=== PATIENT | female | born 1975 | race Caucasian/White ===

== ENCOUNTER 2022-10-29 07:59 | Outpatient (CLI) | payer BC, MEDICAID, SELFPAY ==
--- NOTE | 2022-10-29 08:13 | US_ITS ---
WS: [id number] Complete ABDOMINAL ULTRASOUND HISTORY: LEFT LOWER QUADRANT ABDOMINAL SWELLING, MASS AND LUMP COMPARISON: None available. Liver: 15.5 cm in length. Normal size liver with hepatic steatosis. No intrahepatic duct dilatation. Portal Vein: Normal hepatopetal flow with monophasic waveform. Gallbladder: Well distended. On several images there is bowel gas. Closely associated with the gallbl adder. There is also some very mild nodularity and thickening of the gallbladder which does not persi st on all images. There is no gallbladder wall thickening. CBD: 0.7 cm Pancreas: Obscured by bowel gas. Right kidney: 10.0 cm x 5.3 x 4.2 cm. Cortex:1.0 cm. Normal size and echogenicity. No hydronephrosis or mass. Left kidney: 10.4 cm x 5.3 cm x 5.1 cm. Cortex: 1.2 cm. Normal size and echogenicity. No hydronephrosis or mass. Spleen: 12.7 cm in length. Normal. Aorta and IVC: Limited but unremarkable. US/US abdomen complete* [id number] Impression: 1. Hepatic steatosis. No intrahepatic bile duct dilatation. 2. Difficult visualization of the gallbladder due to several factors. Very sli ght nodularity of the gallbladder wall and possible stones versus bowel gas fro m the adjacent colon. Recommend short-term ultrasound follow-up gallbladder. Re commend 2-3 week follow-up. Reattempt imaging of the gallbladder to evaluate fo r stones. Also the common bile duct can be reevaluated as it is top normal size on today's exam.
--- NOTE | 2022-10-29 08:14 | US_ITS ---
WS: [id number] US pelvic complete* [id number] HISTORY: LEFT LOWER QUADRANT ABDOMINAL SWELLING, MASS AND LUMP COMPARISON: None available. Patient is status post complete hysterectomy. No midline mass identified. There is no free fluid in t he pelvis. The uterus is not identified. Neither ovary is identified. Patient has declined endovaginal imaging. US/US pelvic complete* [id number] IMPRESSION: Status post hysterectomy. No abnormality identified within the pelvis. Neither ovary is identified.
== END 2022-10-29 08:00 | disposition home or self-care (01) ==
PROVIDERS: PCP Nurse Practitioner Family; Visit Provider Nurse Practitioner Family
DX: R19.04 Left lower quadrant abdominal swelling, mass and lump (principal); Z90.710 Acquired absence of both cervix and uterus; K76.0 Fatty (change of) liver, not elsewhere classified; K82.8 Other specified diseases of gallbladder
CPT/HCPCS: 76700; 76856

== ENCOUNTER 2022-11-20 09:50 | Outpatient (CLI) | payer BC, MEDICAID, SELFPAY ==
--- NOTE | 2022-11-20 09:57 | NM_ITS ---
WS: [id number] NUCLEAR MEDICINE HIDA SCAN WITH GALLBLADDER EJECTION FRACTION HISTORY: CHOLECYSTITIS COMPARISON: Gallbladder ultrasound 10/29/2022 TECHNIQUE: The patient was intravenously injected with 7.0 mCi of TC99m Mebrofenin. Immediate imaging over the right upper quadrant was followed by 5 minute image and additional images for a total of 60 minutes. Normal uptake of radiotracer throughout the liver. Activity identified in the gallbladder at 15 minutes and well distended by 60 minutes. Activity in the proximal small bowel was seen by 50 minutes. Good washout of the radiotracer from the liver by 60 minutes. The patient then drank 8 ounces of Ensure Plus. Ejection fraction at 60 minutes was 60%. Normal GB ej ection fraction is 35-75%. Post fatty meal symptoms: None. NM/NM hepatobiliary w phar* [id number] IMPRESSION: 1. Normal HIDA scan. 2. Normal gallbladder ejection fraction.
== END 2022-11-20 09:51 | disposition home or self-care (01) ==
LOC: RAD 09:51
PROVIDERS: PCP Nurse Practitioner Family; Visit Provider Nurse Practitioner Family
DX: K81.9 Cholecystitis, unspecified (principal)
CPT/HCPCS: 78227; A9537

== ENCOUNTER → 2023-01-22 07:54 | Outpatient (BNVA) | payer BC, MEDICAID, SELFPAY | PROVIDERS: PCP Nurse Practitioner Family; Visit Provider Podiatrist Foot & Ankle Surgery | DX: M79.671 Pain in right foot; M25.371 Other instability, right ankle; M20.11 Hallux valgus (acquired), right foot | CPT/HCPCS: 73610 ==

== ENCOUNTER 2023-02-19 08:55 | Outpatient (CLI) | payer BC, MEDICAID, SELFPAY ==
--- NOTE | 2023-02-19 09:30 | MR_ITS ---
WS: [id number] EXAMINATION: MR ankle RT wo con* [id number] ORDER DATE: 02/19/2023 9:14 AM COMPARISON: None. HISTORY: chronic nae instability, possible tear of ligament CONTRAST: None. TECHNIQUE: Axial proton density fat sat, axial T1, sagittal proton density, sagittal STIR, coronal T2 fat sat, and coronal T1 sequences performed. After contrast, axial T1 fat sat, coronal T1 fat sat, and sagittal T1 fat sat were performed. FINDINGS: Achilles enthesophyte. Plantar calcaneal spurring. Normal medial and lateral malleolus. Normal talar dome. Mild degenerative arthritis of the ankle mortise. Deltoid ligament appears intact. ATF appears intact. Small ankle effusion. Distal Achilles appears intact. Trace fluid in the retrocalcaneal bursa . Normal bone marrow signal in the calcaneus. Normal plantar aponeurosis. Normal talocalcaneal and talonavicular articulation. Small amount of tenosynovitis along the peroneal tendons. Peroneal longus and brevis appear intact. Accessory navicular. Partially visualized hallux valgus with bunion deformity. Normal cuboid. Base of the fifth metatarsal appears normal. Normal exte nsor and flexor compartment tendons. Calcaneal cuboid ligament appears intact. IMPRESSION: 1. Small amount of fluid in the retrocalcaneal bursa. Achilles tendon appears intact. 2. Normal medial and lateral malleolus. Normal talar dome. 3. Deltoid ligament appears intact. ATF appears intact. Calcaneal cuboid ligament appears intact. 4. Normal plantar aponeurosis. 5. Small ankle effusion. 6. Mild degenerative arthritis at the ankle mortise. 7. Mild tenosynovitis along peroneal tendons. 8. Hallux valgus with bunion deformity 9. No other acute findings.
== END 2023-02-19 08:56 | disposition home or self-care (01) ==
LOC: RAD 08:55
PROVIDERS: PCP Nurse Practitioner Family; Visit Provider Podiatrist Foot & Ankle Surgery
DX: S93.401A Sprain of unspecified ligament of right ankle, initial encounter (principal); X58.XXXA Exposure to other specified factors, initial encounter; M25.371 Other instability, right ankle; M19.071 Primary osteoarthritis, right ankle and foot; M65.871 Other synovitis and tenosynovitis, right ankle and foot; M20.11 Hallux valgus (acquired), right foot
CPT/HCPCS: 73721

== ENCOUNTER → 2023-04-09 08:57 | Outpatient (BNVA) | payer BC, MEDICAID, SELFPAY | PROVIDERS: PCP Nurse Practitioner Family; Visit Provider Podiatrist Foot & Ankle Surgery | DX: M25.571 Pain in right ankle and joints of right foot; M20.10 Hallux valgus (acquired), unspecified foot; M20.5X1 Other deformities of toe(s) (acquired), right foot | CPT/HCPCS: 73630 ==

== ENCOUNTER 2023-05-01 05:21 | Day surgery (SDC) | payer BC, MEDICAID, SELFPAY ==
[2023-05-01] VITALS (7 sets, daily range): BP systolic 107–128; BP diastolic 37–77; PULSE 52–65; RESP 16–18; TEMP 36.1–36.8; O2SAT 96–99
--- NOTE | 2023-05-01 | XR_ITS ---
WS: [id number] C-ARM RADIOGRAPHS RIGHT FOOT; 2 IMAGES HISTORY: BLAYNEKerry GORDON COMPARISON: 04/09/2023 Intraoperative imaging during bunionectomy and hardware fusion across the first metatarsophalangeal j oint. IMPRESSION: Intraoperative imaging.
[2023-05-01] MEDS: gabapentin 300 mg Capsule PO (06:13)
[2023-05-01] MEDS: acetaminophen 1,000 MG/100 ML PIGGYBACK 400 MG IV (06:13)
[2023-05-01] MEDS: sodium chloride 0.9% 1,000 ML 30 ML IV (06:14)
[2023-05-01] MEDS: scopolamine 1.5 Patch 1 PATCH TRANSDERMA (06:20)
[2023-05-01] MEDS: midazolam 1 mg/mL INJ 2 mL 2 MG IVP (06:20)
--- NOTE | 2023-05-01 06:49 | W.PM.OPSUD ---
Surgery/Procedure H&P Update DATE OF PROCEDURE: May 01, 2023 DATE H&P PERFORMED: 04/09/23 H&P UPDATE INFORMATION: I have reviewed H&P completed within last 30 days, I have examined patient prior to procedure, No changes to prior documentation and H&P is in [facility] EMR on date indicated PREOP DIAGNOSIS: Right foot hallux valgus PLANNED PROCEDURE: Operation Date: 05/01/23 07:00 Proposed Procedures p ?Right foot first metatarsophalangeal joint arthrodesis 24424,M20.11,M20.21(Right) - Sky Grigsby DPM
[2023-05-01] MEDS: ceFAZolin 2,000 MG in sodium chloride 0.9% (plus) 50 ML 100 MG IV (06:58)
--- NOTE | 2023-05-01 07:17 | ANES.PREANE2 ---
Pre-Anesthetic Assessment Height/Weight: Height 1.6 m Weight 97.522 kg Temp Pulse Resp BP Pulse Ox O2 Del Method 97 F L 61 18 128/67 96 Room Air 05/01/23 05:46 05/01/23 05:46 05/01/23 05:46 05/01/23 05:46 05/01/23 05:46 05/01/23 05:55 Preop Diagnosis: Right foot hallux valgus Operation Date: 05/01/23 07:00 Proposed Procedures p ?Right foot first metatarsophalangeal joint arthrodesis 38184,M20.11,M20.21(Right) - Sky Grigsby DPM Familial anesthetic complications: none Was Beta Anthony taken within 24 hours: N/A Was Clonidine taken within 24 hours: N/A Last intake: Intake Last Liquid Date 04/30/23 Last Liquid Time 22:00 Last Solid Date 04/30/23 Last Solid Time 18:00 Social Tobacco (vapes) and No alcohol Exam alert, oriented x 3 and regular rate & rhythm Airway Submandibular: within normal limits Cervical ROM: within normal limits Mallampati: Class II Dentition: full Metabolic Morbid Obesity Neuropsych Anxiety Anesthetic Plan ASA status: 2 Anesthesia: Choice Medications/Allergies Home Medications Medication Instructions Recorded Confirmed Last Taken Type citalopram 20 mg tablet 20 mg PO DAILY 01/22/23 05/01/23 04/30/23 History cetirizine 10 mg capsule (Zyrtec) 10 mg PO DAILY 04/30/23 05/01/23 04/30/23 History crutches #1 ea 04/30/23 Unknown Rx hydrocodone 5 mg-acetaminophen 325 1 tab PO Q6H PRN pain #28 tabs 05/01/23 Unknown Rx mg tablet Allergies Allergy/AdvReac Type Severity Reaction Status Date / Time No Known Allergies Allergy Verified 05/01/23 05:50 Current Medications Generic Name Dose Route Start Last Admin Trade Name Freq PRN Reason Stop Dose Admin Sodium Chloride 1,000 mls @ 30 mls/hr 05/01/23 06:00 05/01/23 06:14 Sodium Chloride 0.9% IV 05/02/23 05:59 30 mls/hr .Q24H KECIA Administration Midazolam HCl 2 mg 05/01/23 05:46 05/01/23 06:20 Midazolam 1 Mg/Ml Inj 2 Ml IVP 2 mg Q5M PRN Administration Preop Anxiety Data Anesthesia Cardiac Studies: No Data to Display
[2023-05-01] MEDS: BUPivacaine 0.5% INJ 30 mL INJECTION (07:24)
--- NOTE | 2023-05-01 08:37 | W.PM.BPON ---
Date of procedure: 05/01/2023 Surgeon name: Dr. Sky Grigsby D.P.M. Commercial Light Fixture Assembler(s) name(s): Angelia Procedure(s) performed: Right foot first metatarsophalangeal joint arthrodesis Description of findings: Arthritic first metatarsophalangeal joint Estimated blood loss: 5 cc Tourniquet time: 60-minute Specimen(s) removed: None Post-operative diagnosis: Hallux valgus/hallux rigidus right foot
--- NOTE | 2023-05-01 08:37 | PM.OP ---
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 The patient has had the aforementioned chief complaint for some time. Conservative treatment measures have been attempted and the patient has opted for surgical intervention at this time. A lengthy discussion regarding the procedure, including risks and complications has been had with the patient and is noted in the recent clinic note. Written and verbal consent have been obtained. All patient questions have been answered to the patient?s satisfaction. No written or verbal guarantees have been given or implied. The patient has been NPO since midnight. The history has been reviewed and the history and physical is current. The signed consent was confirmed and placed in the patient chart. Patient imaging has been reviewed and is consistent with the diagnosis. Under mild sedation, the patient was brought into the operating room and placed on the table in the supine position. IV antibiotics were given by the anesthesia team as preoperative surgical prophylaxis. IV sedation was then performed by the anesthesiateam. A local field block using 0.5% Marcaine plain was then performed. A pneumatic tourniquet was then placed about the right ankle. The operative extremity was then prepped and draped in the usual fashion. The extremity was then elevated and exsanguinated before the tourniquet was inflated to 250 mmHg. After inflation, the following procedure was then performed. Attention was directed to the right first metatarsophalangeal joint where a 4.5 cm incision was made dorsally using a #15 blade. Dissection was carried down through subcutaneous and superficial fascia to the level of the first metatarsophalangeal joint capsule. Any bleeders were cauterized as necessary using electrocautery. Care was taken to preserve the extensor hallucis longus tendon as well as the medial neurovascular bundle. #15 blade was used to incise the first metatarsophalangeal joint thus exposing the underlying first metatarsal phalangeal joint. Dissection was further carried out using a #15 blade to expose the entirety of the first metatarsophalangeal joint and the head of the first metatarsal. There was noted to be erosive changes in the head of the first metatarsal consistent with arthritis. There is also noted to be periarticular spurring. Using a sagittal bone saw the osteophytes at the first metatarsal head were removed and passed from the operative field. Next a 0.062 K wire was driven into the head of the first metatarsal centrally before a concave reamer was placed over the wire and used to ream the first metatarsal head. After reaming, all articular cartilage from the head of the first metatarsal was noted to be removed duration for arthrodesis. Next a 0.062 K wire was removed and driven into the base the proximal phalanx centrally. A corresponding convex reamer was used to remove the articular cartilage from the base the proximal phalanx preparation for arthrodesis. Next the site was irrigated with copious muscle sterile saline before K wire was used to fenestrate the head of first metatarsal base the proximal phalanx. The hallux was then positioned into the appropriate position clinically as well as radiographically which was confirmed on C-arm fluoroscopy. The dorsal first metatarsophalangeal joint plate from [place] [employer] was then positioned into the appropriate position and temporarily fixated using olive wires. Good positioning of the plate was noted clinically as well as on C-arm imaging. A 3.5 mm headless compression lag screw was then driven across the arthrodesis site to provide compression and a distal medial to proximal lateral orientation. The first metatarsophalangeal joint arthrodesis plate was then drilled and filled in standard fashion. Final C arm images were obtained to confirm the positioning of the plate and screws, they were noted to be in the appropriate position. The site was then irrigated with copious nonsterile saline. Attention was then directed to closure. Deep tissue was closed with 3-0 Vicryl followed by subcuticular closure with 4-0 Vicryl and skin closure with 4-0 nylon in running interlocking fashion. The tourniquet was let down good hyperemic response was noted all digits of the right foot. The incision was dressed with Xeroform, 4 x 4 gauze, Kerlix, before being placed in a well-padded below-knee posterior splint. The patient tolerated the procedure and anesthesia well and without complication. The patient was transported from the operating room to the recovery room with vital signs stable and vascular status intact to all digits of the right foot. The patient was given both written and verbal instructions to remain nonweightbearing to the operative extremity, to keep dressings/splint clean, dry and intact and to take pain medication as directed. The patient will follow-up in the outpatient setting at their scheduled appointment. The patient was discharged with my personal number and was instructed to call if any questions or issues should arise. They were discharged home once anesthesia criteria was met.
--- NOTE | 2023-05-01 16:21 | ANE.PACU2 ---
Inpatient post-anesthesia follow up: Airway intact: Yes Vital signs: Temperature 98.2 F Pulse Rate 52 Respiratory Rate 16 Blood Pressure 115/65 Pulse Oximetry 99 Oxygen Delivery Me thod Room Air Oxygen Flow Rate 6 Fraction of Inspir ed Oxygen Hydration adequate: Yes Nausea and vomiting: No Pain level: 1 Mental status: Baseline
== END 2023-05-01 09:18 | disposition home or self-care (01) ==
PROVIDERS: PCP Nurse Practitioner Family; Visit Provider Podiatrist Foot & Ankle Surgery
PROC: (CPT 28740; principal; 2023-05-01 07:00)
DX: M21.071 Valgus deformity, not elsewhere classified, right ankle (principal); M19.071 Primary osteoarthritis, right ankle and foot; E66.01 Morbid (severe) obesity due to excess calories; Z68.38 Body mass index [BMI] 38.0-38.9, adult; F41.9 Anxiety disorder, unspecified; M20.5X1 Other deformities of toe(s) (acquired), right foot
CPT/HCPCS: 28750; 73620; 76000; C1713; J0131; J0690; J2250; J2704; J3010; J3490; J7030